=== PATIENT | male | born 1955 | race African-American/Black ===

== ENCOUNTER 2016-11-27 01:36 | Inpatient (IN) | payer MEDICARE ==
--- NOTE | ~2016-11-27 | CR72 ---
[facility] A Service of [facility] RADIOLOGY TEXT RESULTS PATIENT: SRINI LEOS LOCATION: CEDOF : 59 UNIT #: [id number] AGE: [address]: Phoebe Jones MD SEX: M ORDER DR: [id number] [facility] [place] [address] [place], [place] [address] [id number] MR#: [id number] Acc #: [id number] NAME: SRINI LEOS : 1955 SEX: M STUDY DATE/TIME: 11/27/2016 1:25 UNIT: ADRIEL ROOM: STUDY DESCRIPTION: CR Chest Single View Portable Attending Physician: Lucinda Castaneda M.D. Ordering Physician: Lucinda Castaneda M.D. Primary Care Physician: Elijah Mari M.D. MEDICAL IMAGING REPORT This report is preliminary unless electronic signature is present EXAM AP portable chest, 11/27/2016 HISTORY 61-year-old male in the ED with acute stroke syndrome. Shortness of air and weakness are also noted. Symptoms began today prior to arrival. TECHNIQUE AP portable upright chest x-ray. FINDINGS The exam shows no active disease in the chest. Stable [id number] cardiomegaly with normal pulmonary vascularity. Chronically low lung volumes with mild scarring or atelectasis in the lung bases. No definite acute pulmonary infiltrate or pleural effusion. No change since 08/20/2015. IMPRESSION No active disease. Stable cardiomegaly. Dictated by... Isaac Ansari M.D. THIS IS AN ELECTRONICALLY VERIFIED REPORT Isaac Ansari M.D. at 11/27/2016 5:59 AM YASMEEN/sandi TD: 11/27/2016 02:58 JOB #: [id number] [facility] A Service of [facility] RADIOLOGY TEXT RESULTS PATIENT: SRINI LEOS LOCATION: CEDOF : 59 UNIT #: [id number] AGE: [address]: Phoebe Jones MD SEX: M ORDER DR: MEDICAL IMAGING REPORT Page 1 of 1 COPY
--- NOTE | ~2016-11-27 | MR18 ---
[facility] A Service of [facility] & [facility] RADIOLOGY TEXT RESULTS PATIENT: SRINI LEOS LOCATION: A 342-01 : [birth year] UNIT #: [id number] AGE: [address]: Ester Osorio MD SEX: M ORDER DR: [id number] [facility] [address] [place], [place] [address] [id number] I MR#: [id number] Acc #: [id number] NAME: SRINI LEOS : 1955 SEX: M STUDY DATE/TIME: 11/27/2016 11:09 UNIT: A PCU ROOM: [facility] STUDY DESCRIPTION: MR Brain Wo Contrast Attending Physician: Ester Osorio M.D. Ordering Physician: Samson Reynoso M.D. Primary Care Physician: Elijah Mari M.D. MRI CENTER REPORT This report is preliminary unless electronic signature is present. EXAM Brain MRI without HISTORY Right side numbness, previous left hemispheric CVA, stroke 1 year ago. Right side weakness and slurred speech starting 30 minutes prior to arrival 01:03 11/27/2016. COMMENT MRI of the brain was performed without contrast using routine 1.5T imaging technique. There is a prior study from 11/27/[address] There is an MRI from [facility] from 03/06/2016. There is no evidence for a recent ischemic insult on the diffusion series. Partly seen are degenerative changes in the visualized upper cervical spine. There is some old blood product or mineral deposition associated with the old insults to the left posterior frontal, left anterior parietal and left temporal lobe regions. Also old blood product deposition at the anterior aspect of the right thalamus consistent with a remote insult possibly an old hypertensive hemorrhage. These changes are noted on the previous MRI from [facility] also. There is no extraaxial fluid collection. 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 The distal right vertebral artery is dominant and the distal left vertebral artery is hypoplastic. There is atrophy considerably greater than expected for age group and there are chronic lacunar insults in the bilateral cerebellar hemispheres. Patchy signal abnormality in the david is likely due to small vessel disease. Chronic lacunar insults bilateral basal ganglia and thalami and white matter disease likely due to small vessel disease. Small focus of chronic malacia is seen in the right occipital cortex posterolaterally and in the right posterior frontal to anterior parietal cortex posteromedially. These are all consistent with remote insults. Please correlate for risk STS. [facility] A Service of [facility] & [facility] RADIOLOGY TEXT RESULTS PATIENT: SRINI LEOS LOCATION: C3A 342-01 : 59 UNIT #: [id number] AGE: [address]: Ester Osorio MD SEX: M ORDER DR: factors for both thromboembolic disease and small vessel disease given the different apparent chronic ischemic insults present. Partial opacification of the ethmoid air cells. Mastoid air cells are clear. No intracranial mass effect. IMPRESSION No evidence for acute intracranial abnormality. Specifically, no recent ischemic insult is suspected. There is however extensive preexisting ischemic disease with areas of encephalomalacia and old blood product deposition probably due to a combination of prior thromboembolic and small vessel insults. Appearance is overall not significantly changed from outside MRI of 03/06/2016. Atrophy is greater than expected for age group. Vertebrobasilar dolichoectasia noted. STAT * RESULT Dictated by... Emily Ellis M.D. THIS IS AN ELECTRONICALLY VERIFIED REPORT Emily Ellis M.D. at 11/27/2016 6:11 PM SHANON/luzmaria TD: 11/27/2016 13:52 JOB #: [id number] MRI CENTER REPORT Page 1 of 1 COPY
--- NOTE | ~2016-11-27 | DS ---
Unit #: [id number] #: [id number] Patient: SRINI LEOS [id number] [facility]. [place], [place] [address] [id number] I MR#: [id number] NAME: SRINI LEOS ROOM: 342 Age: 61 Sex: M Admission Date: 11/27/2016 : 1955 Discharge Date: 11/28/2016 Attending Physician: Ester Osorio M.D. Primary Care Physician: Elijah Mari M.D. DISCHARGE SUMMARY PRINCIPAL DIAGNOSES 1. Acute on chronic right sided weakness, likely secondary to unmasking. 2. Mild hypotension, medication-induced. 3. Acute kidney injury on chronic kidney disease, stage 3: Baseline creatinine 1.2. 4. Prior history of left cerebrovascular accident with right sided weakness and dysarthria. 5. Permanent atrial fibrillation, rate controlled and maintained on anticoagulation. 6. Hyperlipidemia. 7. Hypertension. HANGER OFF Dr. Reynoso - Neurology. PROCEDURES 1. CT of the head without contrast on November 27, 2016, with left upper temporoparietal infarct, question chronic versus subacute. Old left posterior temporal lobe infarct is unchanged. Old lacunar infarct in left caudate nucleus and right anterior thalamus. Microvascular ischemic changes noted. 2. CT angiogram of the head on November 27, 2016, with no intra or extracranial aneurysm or flow limiting stenosis. Plaque at cervical carotid bifurcations but 0% per NASCET criteria. 3. Chest x-ray on November 27, 2016, with no acute findings. Cardiomegaly noted. 4. MRI of the brain without contrast on November 27, 2016, with no acute intracranial abnormality. There is extensive pre-existing ischemic disease with area of encephalomalacia and old blood product deposition in the left MCA distribution. 5. Two dimensional echocardiogram on November 27, 2016, with ejection fraction of 45% to 50%, moderately dilated left atrium noted. No shunt was noted on bubble study. Mild to moderate mitral regurgitation. Moderate tricuspid regurgitation and right ventricular systolic pressure of 40 mmHg. CLINICAL HISTORY/HOSPITAL COURSE Mr. Leos is a 61-year-old -[place] male with a prior history of extensive left CVA who presents with new onset right sided weakness. Please refer to H and P for further details. CT scan of the head revealed questionable subacute left temporoparietal strokes but I will note patient was in this facility in August 2015 with evolving stroke and received tPA. Patient was subsequently admitted to rule out new stroke. Unit #: [id number] #: [id number] Patient: SRINI LEOS Patient is maintained on Xarelto. This was discontinued and aspirin was added. CTA of the head does not reveal any significant stenosis. MRI of the brain was done and also did not reveal any acute infarct. The CT scans present upon presentation were felt to be secondary to old stroke and were not reflected on prior CT of the head in August 2015 due to the fact stroke was evolving and these findings were that evolving stroke. The patient's right sided weakness has improved and is felt to be secondary to a masking. EEG was also done and was negative. We are going to continue patient on Xarelto. Patient did have a mild bump in creatinine during hospitalization but this resolved with IV hydration. Baseline creatinine appears to be approximately 1.2. Patient's other chronic conditions remain stable. He will be discharged home today. DISCHARGE CONDITION Stable. DISCHARGE STATUS Discharge to home. DISCHARGE MEDICATIONS 1. Xarelto 20 mg daily. 2. Neurontin 100 mg b.i.d. 3. Coreg 25 mg b.i.d. 4. Diltiazem ER 60 mg daily. 5. Lipitor 40 mg, two tablets at bedtime. 6. Lisinopril 40 mg daily. 7. Protonix 20 mg daily. I will note, patient reportedly has a significant history of hypertension. However, some of his medications were held here due to the fact his blood pressure was running low on these medications. Thus, patient's hydralazine, hydrochlorothiazide, and Aldactone have all been held. His potassium has also been held given potassium levels here have been normal off of these medications. He will need a followup blood pressure done. DISCHARGE INSTRUCTIONS The patient was instructed to follow a heart healthy diet. He can increase his activity as tolerated. FOLLOWUP Patient will follow up with his primary care provider (1) in two weeks. Needs re-evaluation of blood pressure at that time and reinitiation of medications if needed. Dictated by... Ester Osorio M.D. RAF/brianna TD: 12/01/2016 08:06 JOB #: [id number] Unit #: [id number] #: [id number] Patient: SRINI LEOS DISCHARGE SUMMARY Page 1 of 1 X Ester Osorio MD X DISCHARGE SUMMARY
--- NOTE | ~2016-11-27 | CO ---
Unit #: [id number] #: [id number] Patient: SRINI LEOS [id number] [facility] [address] [place], [place] [address] [id number] I MR#: [id number] NAME: SRINI LEOS ROOM: 342 Age: 61 Sex: M Admission Date: 11/27/2016 : 1955 Attending Physician: Ester Osorio M.D. Primary Care Physician: Elijah Mari M.D. Requesting Physician: Phoebe Jones M.D. Consultation Date: 11/27/2016 CONSULTATION REPORT REASON FOR CONSULT CVA. PATIENT IDENTIFICATION This is a 61-year-old, right-handed, -Slovak male evaluated in room 342 at [facility]. SOURCE OF INFORMATION Obtained from the patient as well as the medical record. Difficulty obtaining from the patient given his severe expressive difficulties but he is able to make his needs known and nods his head yes/no to questions. HISTORY OF PRESENT ILLNESS This is a pleasant, 61-year-old, right-handed, -Slovak male with a past medical history of left MCA territory ischemic CVA status post Alteplase in August of 2015, history of atrial fibrillation, who is admitted for new neurologic symptoms. The patient has chronic expressive aphasia from his prior stroke in August of 2015. He actually presented to this facility in August of 2015 for acute stroke and received IV Alteplase and then was transferred to [facility] for possible thrombectomy or further intervention. I do not have those records yet at this time. They are pending. He apparently however was discharged with residual expressive aphasia but the patient reports no other significant deficits. The patient presented via EMS to this facility last evening for new complaints of paresthesia of the face, arm and leg on the right side. He was seen emergently as his last known well was about 45 minutes prior to arrival. Dr. Reynoso saw the patient via robot and it was decided the patient was not a good candidate for Alteplase given unclear new measurable deficit of what is new and what is old and also the patient showed questionable subacute findings on the CT. Given that they were unable to determine new versus old and, again, reported new symptoms do not appear to be consistent with a measurable disabling deficit and also the patient is taking Xarelto, Dr. Reynoso felt that the patient was not a candidate for Alteplase. CT angiogram of the head and neck was done that was negative for any occlusion or significant stenosis. No report of any exacerbating or alleviating factors and the patient reports continued paresthesia of the right face, arm and leg but reports it has improved. He denies any other new focal weakness, vision changes, double vision, blurred vision or loss of vision, headache or neck pain, fever or chills, shortness of air, chest pain, nausea or vomiting or abdominal pain or any bruising or bleeding. He has no new cortical symptoms on evaluation. Unit #: [id number] #: [id number] Patient: SRINI LEOS PAST MEDICAL HISTORY 1. Prior left MCA territory ischemic CVA in August of 2015 with residual expressive aphasia. The patient received IV Alteplase at [facility] and was emergently transferred to [facility]. Those records are pending. 2. Atrial fibrillation. He is maintained on Xarelto and reports he has not missed any recent doses. 3. Right shoulder surgery. 4. Abdominal surgery. 5. Hepatitis. 6. Hyperlipidemia. He is on intensive statin therapy. FAMILY HISTORY Positive for stroke. SOCIAL HISTORY The patient lives with his ex-. He is a reformed smoker, denies alcohol use or illicit drug use. ALLERGIES Penicillin. HOME MEDICATIONS As per med rec include: 1. Diltiazem ER. 2. Protonix. 3. Hydrochlorothiazide. 4. Aldactone. 5. Potassium chloride. 6. Lipitor. 7. Carvedilol. 8. Zestril. 9. Neurontin. 10. Hydralazine. 11. Xarelto. REVIEW OF SYSTEMS Fourteen-point review of systems was attempted. Pertinent positives are as discussed above, otherwise negative. PHYSICAL EXAMINATION VITAL SIGNS: Temperature 98.7. Pulse 70. Respirations 18. Blood pressure 112/74. Blood pressure in the ER on arrival was 134/84. Oxygen saturation 99%. Height 5 feet, 11 inches. Weight 242 pounds. BMI 33. NEUROLOGIC EXAMINATION MENTAL STATUS: The patient is awake. He is alert. It is difficult to determine true orientation as the patient has severe expressive difficulties, both aphasia and apraxia, thus making it difficult to get much across other than yes or no answers. He appears to be a good historian and appears to answer yes/no appropriately and can get some things across that clearly make sense. He was able to tell me that he lives with his ex- and he was able to answer some other questions. It just takes significant time and appeared to be very difficult for him. He appears to only be able to answer more simple questions and can certainly nod his head yes and no quite easily. CRANIAL NERVE EXAM: He demonstrates full lim of vision on exam. His eyes are conjugate, without ptosis or nystagmus. Extraocular movements Unit #: [id number] #: [id number] Patient: SRINI ELOS are intact. Sensation of the face and scalp is intact. Strength of muscles of facial expression initially reveals some mild asymmetry on the right compared to the left but he appears to have full use of his muscles of facial expression with facial movement and smiling. Hearing is intact to conversation. Tongue is midline. Unable to visualize uvula and palate. Head turning and shoulder shrug are unremarkable on the left but difficult on the right. He has had prior shoulder surgery. Neck appears to be supple. MOTOR EXAM: He appears to have good strength bilaterally but he does appear to be mildly weaker on the right compared to the left, 5-/5 compared to 5/5 on the left. SENSORY EXAM: Intact. No extinction appreciated. Romberg deferred. GAIT: Deferred at this time. REFLEXES: Unable to elicit. Toes are equivocal. COORDINATION: No ataxia appreciated. DIAGNOSTIC STUDIES IMAGING: CT of the head without contrast, stroke protocol. Impression per radiology report: Likely subacute left upper temporoparietal infarct not present on previous study from 08/20/15. No evidence of associated hemorrhage, surrounding edema or mass effect. Nearby old left posterior temporal lobe infarct has not changed significantly since 08/20/15. Both infarcts are present in the left MCA territory. Old lacunar infarcts near the left caudate nucleus head and right anterior thalamus. Patchy low-attenuation white matter changes, nonspecific but likely related to chronic microvascular disease. Looking at the CT imaging, infarcts all appear to be more chronic as far as the hypodensities. I did review those with Dr. Reynoso in detail including all imaging. CT angiogram of the head and neck shows no intra or extracranial aneurysm or flow-limiting stenosis. No convincing evidence of any intracranial region or zone of hypoperfusion, branch vessel occlusion or other acute abnormality. There is plaque at the cervical carotid bifurcations but no stenosis in either internal carotid by NASCET criteria. No definite acute abnormality. MRI of the brain without contrast on 11/27/16 shows no evidence for acute intracranial abnormality. Specifically, no recent ischemic insult is suspected. There is however extensive preexisting ischemic disease with areas of encephalomalacia and old blood product deposition probably due to a combination of prior thromboembolic and small vessel insults. Appearance is overall not significantly changed from outside MRI of 03/06/2016. Atrophy is greater than expected for age group. Vertebrobasilar dolichoectasia noted. LABORATORY: CRP less than 0.5. Hemoglobin A1C 5.5. TSH 0.89. BMP unremarkable other than a BUN of 26, creatinine 1.5, estimated GFR 58.3, cholesterol is 135, triglycerides 41, LDL 80, HDL 47. White blood cell count 5.2, hemoglobin 12.6, hematocrit 39.2, platelet count 159. Other labs and diagnostic studies are as per chart and have been reviewed. Initial and repeat troponin less than 0.05. IMPRESSION 1. New right facial, arm and leg paresthesia. MRI of the brain negative for new ischemia or ischemic infarct. Consider unmasking versus underlying focal seizure activity. EEG of the brain is pending. Unit #: [id number] #: [id number] Patient: SRINI LEOS 2. History of left middle cerebral artery territory ischemic cerebrovascular accident in August of 2015. The patient received Alteplase in our emergency department and then went emergently to [facility] for further treatment. He has residual aphasia. We are awaiting those records. 3. Atrial fibrillation, on Xarelto. 4. Acute kidney injury this morning. Patient did receive CTA iodine contrast though the night. 5. Hyperlipidemia with LDL of 80. Resume home dose of Lipitor. He was on 80 mg p.o. q.h.s. 6. Nonsmoker. 7. History of hepatitis. PLAN MRI of the brain is unremarkable for any new findings. In looking at the MRI of the brain, it does show appearance that is overall not significantly changed from outside MRI of 03/06/2016 per report. Again, these findings are likely the result of his prior left MCA infarct and he is on anticoagulation for afib. From neurology standpoint we can stop aspirin as this is not a new infarct and not consistent with a transient ischemic attack. EEG is pending. Otherwise stroke risk factors have been assessed and further recommendations pending workup and further clinical course. The case was discussed with Dr. Reynoso who saw the patient as well as he agrees with the above. We will follow along with you. We thank you very much for allowing us to assist in the care of this patient. Dictated by... Joyce Coker A.P.R.N. for Darwin Hubbard/joel TD: 11/27/2016 18:44 JOB #: [id number] CONSULTATION REPORT Page 1 of 1 X Joyce Coker CYBERATHLETE X CONSULTATION REPORT
--- NOTE | ~2016-11-27 | CT18 ---
[facility] A Service of [facility] RADIOLOGY TEXT RESULTS PATIENT: SRINI LEOS LOCATION: [facility] 342-01 : [birth year] UNIT #: [id number] AGE: [address]: Ester Osorio MD SEX: M ORDER DR: [id number] [facility] [address] [place], [place] [address] [id number] I MR#: [id number] Acc #: [id number] NAME: SRINI LEOS : 1955 SEX: M STUDY DATE/TIME: 11/27/2016 1:15 UNIT: C3A PCU ROOM: [facility] STUDY DESCRIPTION: CT Angio Head Stroke Attending Physician: Ester Osorio M.D. Ordering Physician: Lucinda Castaneda M.D. Primary Care Physician: Elijah Mari M.D. MEDICAL IMAGING REPORT This report is preliminary unless electronic signature is present EXAM Head and neck CT angiogram with contrast 11/27/2016 PROCEDURE Axial contrast enhanced head and neck CT angiogram with three-dimensional reformats. This CT examination was performed with one or more of the following radiation dose reduction techniques: automatic exposure control, adjustment of mA and/or kV according to patient size, and iterative reconstruction. COMPARISON Head CT without contrast 11/27/2016. HISTORY Previous history of stroke with new onset right side weakness and difficulty speaking for about 30 minutes. FINDINGS There is a normal arch branching pattern without proximal great vessel stenosis. The right vertebral artery is dominant though both are patent throughout the neck. The basilar artery is patent and the right posterior communicator is clearly identified. The left may be present but that is less certain. The cervical common carotids are widely patent and though there is plaque at the cervical carotid bifurcations there is 0% stenosis in both internal carotids by NASCET criteria. The anterior communicator is patent. There is encephalomalacia in the left posterior frontal and parietal cortex. There is no convincing evidence of acute ischemia, branch vessel occlusion, region or zone of hypoperfusion. The dural venous sinuses are normally patent. There is no intracranial aneurysm or flow-limiting stenosis. IMPRESSION [facility] A Service of [facility] RADIOLOGY TEXT RESULTS PATIENT: SRINI LEOS LOCATION: C3A 342-01 : [birth year] UNIT #: [id number] AGE: [address]: Ester Osorio MD SEX: M ORDER DR: 1. No intra- or extracranial aneurysm or flow-limiting stenosis. No convincing evidence of any intracranial region or zone of hypoperfusion, branch vessel occlusion or other acute abnormality. 2. There is plaque at the cervical carotid bifurcations but no stenosis in either internal carotid by NASCET criteria. No definite acute abnormality. Dictated by... Russell Toussaint M.D. THIS IS AN ELECTRONICALLY VERIFIED REPORT Russell Toussaint M.D. at 11/27/2016 3:51 PM REBECCA/luzmaria TD: 11/27/2016 09:04 JOB #: [id number] MEDICAL IMAGING REPORT Page 1 of 1 COPY
--- NOTE | ~2016-11-27 | EE ---
Unit #: [id number] #: [id number] Patient: SRINI LEOS [id number] [address] [address] [id number] I MR#: [id number] NAME: SRINI LEOS : 1955 SEX: M STUDY DATE/TIME: 11/27/2016 UNIT: C3A PCU ROOM: 342 STUDY DESCRIPTION: EEG Attending Physician: Ester Osorio M.D. Referring Physician: Ester Osorio M.D. Primary Care Physician: Elijah Mari M.D. NEURODIAGNOSTICS REPORT PROCEDURE PERFORMED EEG. REASON FOR STUDY Mental status changes and stroke. EEG DESCRIPTION This is an inpatient, digitally recorded, multi-montage, adult EEG with leads placed according to the International 10-20 system. Hyperventilation and photic stimulation were not done. PROCEDURE REPORT This EEG shows 9-10 Hz posterior background. Some beta artifact was seen. Some muscle artifact was seen but nothing suggesting seizures, status or interictal discharges. Some stage II sleep was seen. No clinical events were seen. Hyperventilation and photic stimulation were not done. IMPRESSION Mostly awake and drowsy EEG with some sleep but otherwise unremarkable EEG. Nothing suggesting seizure or status. Clinical correlation is recommended. An EEG like this does not rule out epilepsy. Dictated by... Darwin Hubbard/eli TD: 11/29/2016 08:34 JOB #: [id number] Unit #: [id number] #: [id number] Patient: SRINI LEOS NEURODIAGNOSTICS REPORT Page 1 of 1 X Samson Reynoso MD NEURODIAGNOSTICS REPORT
--- NOTE | ~2016-11-27 | EKG ---
PATIENT: SRINI LEOS UNIT #: [id number] Ventricular Rate: 81 BPM Atrial Rate: 170 BPM QRS Duration: 102 ms Q-T Interval: 392 ms QTC Calculation(Bezet): 455 ms Calculated R [place]: -22 degrees Calculated T [place]: 67 degrees Diagnosis Line: Atrial fibrillation Diagnosis Line: Abnormal ECG Diagnosis Line: When compared with ECG of 21-AUG-2015 00:39, Diagnosis Line: Vent. rate has decreased BY 75 BPM Diagnosis Line: Confirmed by KOBE KNOX MD ([id number]) on Diagnosis Line: 11/28/2016 10:57:24 PM INTERPRETING MD: DARRELL
--- NOTE | ~2016-11-27 | CT24 ---
[facility] A Service of [facility] RADIOLOGY TEXT RESULTS PATIENT: SRINI LEOS LOCATION: [facility] 342-01 : [birth year] UNIT #: [id number] AGE: [address]: Ester Osorio MD SEX: M ORDER DR: [id number] [facility] [address]. [place], [place] [address] [id number] I MR#: [id number] Acc #: [id number] NAME: SRINI LEOS : 1955 SEX: M STUDY DATE/TIME: 11/27/2016 1:15 UNIT: [address] ROOM: [facility] STUDY DESCRIPTION: CT Angio Neck Stroke Attending Physician: Ester Osorio M.D. Ordering Physician: Lucinda Castaneda M.D. Primary Care Physician: Elijah Mari M.D. MEDICAL IMAGING REPORT This report is preliminary unless electronic signature is present EXAM CT angiogram of the neck FINDINGS Please see CT angiogram of the head for results. Dictated by... Russell Toussaint M.D. THIS IS AN ELECTRONICALLY VERIFIED REPORT Russell Toussaint M.D. at 11/29/2016 10:26 AM REBECCA/luzmaria TD: 11/27/2016 09:05 JOB #: [id number] MEDICAL IMAGING REPORT Page 1 of 1 COPY
--- NOTE | ~2016-11-27 | HP ---
Unit #: [id number] #: [id number] Patient: SRINI LEOS [id number] [address] [place], [place] [address] [id number] I MR#: [id number] NAME: SRINI LEOS ROOM: [address] Age: 61 Sex: M Admission Date: 11/27/2016 : 1955 Attending Physician: Phoebe Jones M.D. Primary Care Physician: Elijah Mari M.D. HISTORY AND PHYSICAL CHIEF COMPLAINT CVA. 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 The patient has a dense expressive aphagia, which is old. From what I can determine he experienced new right-sided numbness about 45 minutes prior to arrival to this ER. He presented to this emergency department at 1 o'clock in the morning. A stat CT scan was performed showing patient's old CVA but also likely subacute left upper temporoparietal infarct. The case was discussed with Dr. Reynoso. As patient currently is taking Xarelto, aspirin was added. A CTA of the head and neck shows no significant stenosis or occlusion. The prior posterior occlusion left MCA appears to be patent today. The patient was admitted to [facility] 08/2015 for a left MCA CVA. Unfortunately we are unable to obtain records at this time and will request records in the morning. PAST MEDICAL HISTORY 1. Hepatitis per old records. 2. Prior left hemispheric CVA 08/2015 with expressive aphasia, right-sided weakness. 3. Atrial fibrillation on Xarelto. 4. Right shoulder surgery. 5. Abdominal surgery. ALLERGIES Penicillin. HOME MEDICATIONS Xarelto, possibly more medicines, will obtain list. FAMILY HISTORY CVA. SOCIAL HISTORY The patient lives with either roommates or family. Stopped smoking. Does not drink alcohol. REVIEW OF SYSTEMS Impossible to obtain due to a dense expressive aphasia. Unit #: [id number] #: [id number] Patient: SRINI LEOS PHYSICAL EXAMINATION GENERAL: Michael 61-year-old male who currently is in no acute distress. VITAL SIGNS: Temperature 98.4, pulse 86, respirations 22, blood pressure 134/84, O2 saturation 99% on room air. HEENT: Eyes - PERRLA, extraocular muscles are intact. Pharynx is benign. Tongue deviates to the right. The patient has a heavy alfaro, I'm unsure, he may have a little right lower facial droop. NECK: Supple without adenopathy or thyromegaly. CHEST: Clear. CARDIAC: Irregular, irregular. S1 and S2 without definite murmur. ABDOMEN: Bowel sounds are present. No hepatosplenomegaly, tenderness or masses. EXTREMITIES: Without clubbing, cyanosis or edema. Pedal pulses are present. NEUROLOGIC: Patient is awake, alert. He is able to respond to commands and nod his head appropriately. He does, however, have a dense expressive aphasia. His right hand grade is weaker than the left. There is a very slight right pronator drift. He has equal strength in his legs. Normal [id number]. He is able to sit up with assistance. DIAGNOSTIC STUDIES ADMISSION LABS: Hematocrit is 41.3, normal white count, platelet count and coags. SMA 12 - BUN 27, glucose 116. GFR is 69. Alcohol level less than 5. Cardiac markers are negative. IMAGING STUDIES: Chest x-ray - stable mild to moderate cardiomegaly. Head CT likely subacute, left upper temporal-parietal infarct. Nearby old left posterior temporal lobe infarct. Old lacunar type infarcts near the left caudate nucleus head and right anterior thalamus. Likely small vessel ischemic disease. CTA of the head and neck show no occlusion or cutoff. CARDIOLOGY STUDIES: EKG shows atrial fibrillation rate 80. ASSESSMENT 1. Right-sided numbness in this patient with a prior left hemispheric CVA. CT scan shows likely subacute temporal-parietal infarct on the left. 2. Chronic atrial fibrillation on Xarelto. PLANS 1. Case was discussed with Dr. Reynoso, aspirin was started along with the patient's continued Xarelto. 2. Check lipid profile, MRI, and obtain prior records from [facility]. 3. Verify home medicines. 4. Obtain echo versus KE, etc, per neurology. Dictated by Phoebe Jones M.D. AML/adm Unit #: [id number] #: [id number] Patient: SRINI LEOS TD: 11/27/2016 05:01 JOB #: [id number] HISTORY AND PHYSICAL Page 1 of 1 X Phoebe Jones MD HISTORY AND PHYSICAL
--- NOTE | ~2016-11-27 | CT72 ---
[facility] A Service of [facility] RADIOLOGY TEXT RESULTS PATIENT: SRINI LEOS LOCATION: [facility] : 59 UNIT #: [id number] AGE: [address]: Phoebe Jones MD SEX: M ORDER DR: [id number] [id number] [facility]. [place], [place] [address] [id number] MR#: [id number] Acc #: [id number] NAME: SRINI LEOS : 1955 SEX: M STUDY DATE/TIME: 11/27/2016 1:03 UNIT: ADRIEL ROOM: STUDY DESCRIPTION: CT Head Wo Contrast Stroke Attending Physician: Lucinda Castaneda M.D. Ordering Physician: Lucinda Castaneda M.D. Primary Care Physician: Elijah Mari M.D. MEDICAL IMAGING REPORT This report is preliminary unless electronic signature is present EXAM CT head, noncontrast, 11/27/2016 HISTORY 61-year-old male in the ED with stroke syndrome symptoms. New onset right-side weakness tonight, difficulty speaking. History of stroke [address] examination of the head without IV contrast. This CT exam was performed with one or more of the following radiation dose reduction techniques: automatic exposure control, adjustment of mA and/or kV according to patient size, and iterative reconstruction. COMPARISON CT head 08/20/2015. FINDINGS There is a likely subacute infarct in the left upper temporoparietal lobe that was not present on the previous study. A nearby chronic left posterior temporal lobe infarct is unchanged since the prior exam. Both are present within the left MCA distribution. No evidence of hemorrhage, significant surrounding white matter edema or mass effect. Old lacunar type infarcts near the left caudate nucleus head and anterior to the right thalamus. Patchy diffuse low-attenuation white matter changes, nonspecific but likely related to chronic microvascular disease. No hydrocephalous. IMPRESSION 1. Likely subacute left upper temporoparietal infarct. This was not [facility] A Service [facility] RADIOLOGY TEXT RESULTS PATIENT: SRINI LEOS LOCATION: [facility] : 59 UNIT #: [id number] AGE: [address]: Phoebe Jones MD SEX: M ORDER DR: present on a previous study of 08/20/2015. No evidence of associated hemorrhage, surrounding edema or mass effect. 2. Nearby old left posterior temporal lobe infarct has not changed significantly since 08/20/2015. Both infarcts are present in the left MCA territory. 3. Old lacunar type infarcts near the left caudate nucleus head and right anterior thalamus. 4. Patchy low-attenuation white matter changes, nonspecific but likely related to chronic microvascular disease. Dictated by... Isaac Ansari M.D. THIS IS AN ELECTRONICALLY VERIFIED REPORT Isaac Ansari M.D. at 11/27/2016 5:58 AM YASMEEN/sandi TD: 11/27/2016 02:33 JOB #: [id number] MEDICAL IMAGING REPORT Page 1 of 1 COPY
[2016-11-27 01:16] LABS: BASOPHIL% 0.7 % (0-2.5); DIFF IND NO; EOSINOPHIL# 0.2 X10e3 (0-0.7); EOSINOPHIL% 3.2 % (0.0-7.0); HEMATOCRIT 41.3 % (38.0-50.0); HEMOGLOBIN 13.2 gm/dL (13.0-16.0); LYMPHOCYTE# 1.9 X10e3 (1.0-3.5); LYMPHOCYTE% 31.2 % (17.0-45.0); MEAN CELL VOLUME 91.1 FL (83-96); MEAN CORPUSCULAR HEMOGLOBIN 29.1 PG (28-34); MEAN CORPUSCULAR HGB CONC 31.9 g/dL (30-36); MEAN PLATELET VOLUME 9.5 FL (6.5-11.5); MONOCYTE# 0.5 X10e3 (0-1.0); NEUTROPHIL# 3.4 X10e3 (1.5-7.1); NEUTROPHIL% 55.9 % (40-75); PLATELET COUNT 164 X10e3 (140-420); RED BLOOD COUNT 4.53 X10e (3.90-5.60); RED CELL DISTRIBUTION WIDTH 13.8 % (11.0-15.5)
[2016-11-27 01:30] LABS: INR 1.1; PARTIAL THROMBOPLASTIN TIME 29.4 SECONDS (23.5-31.3); PROTHROMBIN TIME (PATIENT) 11.9 SECONDS (9.6-11.5)
[2016-11-27 01:39] LABS: ALBUMIN SERUM 3.5 g/dL (3.5-5.0); BILIRUBIN, DIRECT 0.1 mg/dL (0.0-0.2); BILIRUBIN,INDIRECT 0.2 mg/dL (0.0-0.9); BILIRUBIN,TOTAL 0.3 mg/dL (0.2-2.0); BUN/CREATININE RATIO 20.76; CREATININE SERUM 1.3 mg/dL (0.6-1.4); GLOM FILT RATE Estimated 69.2 mL/min (>60); POTASSIUM 4.1 mmol/L (3.5-5.1); PROTEIN TOTAL SERUM 6.7 g/dL (6.0-8.3)
[2016-11-27 01:40] LABS: POC - CREATININE 1.17 mg/dL (0.64-1.27); POC - GFR >60.0 mL/min (>60)
[2016-11-27 01:48] LABS: POC - CKMB <1.0 ng/mL (0.0-7.9); POC - TROPONIN <0.05 ng/mL (<=0.05)
[2016-11-27 03:30] LABS: POC - CKMB <1.0 ng/mL (0.0-7.9); POC - TROPONIN <0.05 ng/mL (<=0.05)
[2016-11-27] MEDS ORDERED: DILTIAZEM ER60 MG PO (07:54)
[2016-11-27] MEDS ORDERED: PROTONIX20 MG PO (07:55)
[2016-11-27] MEDS ORDERED: ALDACTONE25 MG (07:56)
[2016-11-27] MEDS ORDERED: HYDROCHLOROTHIA25 MG (07:56)
[2016-11-27] MEDS ORDERED: POTASSIUM CHLO20 ME1 (07:57)
[2016-11-27] MEDS ORDERED: LIPITOR40 MG PO (07:58)
[2016-11-27] MEDS ORDERED: CARVEDILOL25 M1 PO (07:59)
[2016-11-27] MEDS ORDERED: ZESTRIL40 MG PO (07:59)
[2016-11-27] MEDS ORDERED: NEURONTIN100 MG PO (08:00)
[2016-11-27] MEDS ORDERED: HYDRALAZINE HCL50 MG (08:00)
[2016-11-27] MEDS ORDERED: XARELTO20 MG PO (08:02)
[2016-11-27 08:35] LABS: HEMATOCRIT 39.2 % (38.0-50.0); HEMOGLOBIN 12.6 gm/dL (13.0-16.0); MEAN CELL VOLUME 91.4 FL (83-96); MEAN CORPUSCULAR HEMOGLOBIN 29.4 PG (28-34); MEAN CORPUSCULAR HGB CONC 32.1 g/dL (30-36); RED BLOOD COUNT 4.29 X10e (3.90-5.60); WHITE BLOOD COUNT 5.2 X10e3 (4.0-10.5)
[2016-11-27 09:21] LABS: BUN/CREATININE RATIO 17.33; CREATININE SERUM 1.5 mg/dL (0.6-1.4); GLOM FILT RATE Estimated 58.3 mL/min (>60); POTASSIUM 4.3 mmol/L (3.5-5.1)
[2016-11-28 06:35] LABS: BUN/CREATININE RATIO 19.16; CREATININE SERUM 1.2 mg/dL (0.6-1.4); GLOM FILT RATE Estimated 76.3 mL/min (>60); POTASSIUM 3.8 mmol/L (3.5-5.1)
== END 2016-11-28 17:00 | disposition home or self-care (01) | DRG 57 ==
LOC: CED 01:36 → CEDOF 04:00 → C3A PCU 06:11
PROVIDERS: Emergency Medicine; Internal Medicine
PROC: B32GYZZ Computerized Tomography (CT Scan) of Bilateral Vertebral Arteries using Other Contrast (ICD-10-PCS; principal; 2016-11-27)
DX: I69.351 Hemiplegia and hemiparesis following cerebral infarction affecting right dominant side (principal); N17.9 Acute kidney failure, unspecified; N18.3 Chronic kidney disease, stage 3 (moderate); I12.9 Hypertensive chronic kidney disease with stage 1 through stage 4 chronic kidney disease, or unspecified chronic kidney disease; Z88.0 Allergy status to penicillin; I48.91 Unspecified atrial fibrillation; E78.5 Hyperlipidemia, unspecified; Z82.3 Family history of stroke; Z87.891 Personal history of nicotine dependence; Z79.01 Long term (current) use of anticoagulants; I69.322 Dysarthria following cerebral infarction
CPT/HCPCS: 36415; 70450; 70496; 70498; 70551; 71010; 80048; 80061; 80076; 82553; 82565; 82947; 83036; 84443; 84484; 85025; 85027; 85610; 85730; 86140; 92507; 92523-GN; 92610; 93005; 93306; 94760; 95816; 97163; 97167; 99285; G8978-GP; G8979-GP; G8980-GP; G8987-GO; G8988-GO; G8989-GO; G8996-GN; G8997-GN; Q9967

== ENCOUNTER 2017-02-01 07:21 | Observation (INO) | payer MEDICARE ==
--- NOTE | ~2017-02-01 | EKG ---
PATIENT: SRINI LEOS UNIT #: [id number] Ventricular Rate: 62 BPM Atrial Rate: 111 BPM QRS Duration: 98 ms Q-T Interval: 382 ms QTC Calculation(Bezet): 387 ms Calculated R [place]: -66 degrees Calculated T [place]: 23 degrees Diagnosis Line: Atrial fibrillation Diagnosis Line: Left anterior fascicular block Diagnosis Line: Cannot rule out Anterior infarct , age Diagnosis Line: undetermined Diagnosis Line: Abnormal ECG Diagnosis Line: When compared with ECG of 27-NOV-2016 01:33, Diagnosis Line: Left anterior fascicular block is now Present Diagnosis Line: QT has shortened Diagnosis Line: Confirmed by MUKUL SAAVEDRA MD ([id number]) on Diagnosis Line: 02/02/2017 11:06:53 AM INTERPRETING MD: QUENTIN DUBON
--- NOTE | ~2017-02-01 | CO ---
Unit #: [id number] #: [id number] Patient: SRINI LEOS [id number] [facility]. [place], [place] [address] [id number] I MR#: [id number] NAME: SRINI LEOS ROOM: 02417 Age: 61 Sex: M Admission Date: 02/01/2017 : 1955 Attending Physician: Rhona Cardona M.D. Primary Care Physician: Elijah Mari M.D. Consultation Date: 02/01/2017 CONSULTATION REPORT REASON FOR CONSULT Chest pain. HISTORY OF PRESENT ILLNESS The patient is a 61-year-old -Green[place] male with a history of permanent A-fib on Xarelto, history of a left MCA stroke in August 2015, hypertension, remote tobacco abuse, quit three years ago, history of alcohol abuse, quit ten years ago, history of cocaine abuse, quit ten years ago, as well as a history of PEG placement with removal in April 2016. The patient had an echo in November 2016 which showed an EF of 45% to 50%, mildly dilated left atrium, mild to moderate MR, moderate TR and RVSP of 40 mmHg. The patient presented to the [facility] on 02/01/17 at 7:21 a.m. with complaint of chest pain. The patient is very dysphasic from his previous stroke and can answer with yes/no questions but is very limited verbally and there is no family at bedside. I attempted to reach the family by phone, however, was unsuccessful with reaching anybody. The patient shook head yes that he had chest pain in the middle of the night last night that was shooting in nature as well as a pressure to the left side of the chest. He had some associated shortness of breath and fatigue but denied any diaphoresis, nausea, lightheadedness or syncope. Troponin here in the ER had been less than 0.05 and less than 0.05 two hours apart. BNP is 55. Cardiology was consulted for further evaluation of chest pain. PAST MEDICAL HISTORY 1. Permanent A-fib, on Xarelto. 2. History of CVA with right sided weakness as well as severe dysphasia in August 2015 and possibly in November 2016 although it is difficult to tell from the dictation. 3. Severe dysphasia. 4. Hypertension. 5. Remote tobacco abuse, quit three years ago. 6. History of alcohol abuse, quit ten years ago. 7. History of cocaine abuse - quit ten years ago. 8. History of PEG tube with removal in April 2016. 9. EF of 45% to 50%. Moderately dilated left atrium, mild to moderate MR, moderate TR and RVSP of 40 mmHg per echo November 2016. SURGICAL HISTORY Includes right shoulder surgery with also an incision to the left anterior chest. It is difficult to tell and patient is not able to verbalize what that was from. Unit #: [id number] #: [id number] Patient: SRINI LEOS ALLERGIES Include penicillin. HOME MEDICATIONS 1. Cardizem 60 mg p.o. daily. 2. Protonix 20 mg p.o. daily. 3. Lipitor 80 mg p.o. at bedtime. 4. Coreg 25 mg p.o. twice a day. 5. Zestril 40 mg p.o. daily. 6. Xarelto 20 mg p.o. daily. 7. Neurontin 100 mg p.o. twice a day. REVIEW OF SYSTEMS Ten point review of systems is negative except for what is in the HPI above. PHYSICAL EXAMINATION GENERAL APPEARANCE: This is a 61-year-old -Green[place]ic male who is alert, oriented x3, in no apparent distress. VITAL SIGNS: Blood pressure is 127/100, temp 97.8, pulse 77, respirations 16. HEENT: Pupils equal, round reactive. Oral mucosa is moist. NECK: No JVD, no thyromegaly, no lymphadenopathy, no carotid bruits. HEART: S1, S2. Irregularly irregular. No S3 or S4. No clicks, no rubs, no murmurs. ABDOMEN: Soft. Bowel sounds positive. Nontender, nondistended. EXTREMITIES: No swelling. NEUROLOGICAL: Right sided weakness from previous stroke and dysphasic. DIAGNOSTIC STUDIES LABORATORY: Troponin of less than 0.05 and less than 0.05. BNP of 55. White count 5.9, hemoglobin 13.3, hematocrit 42, platelets 168, sodium 137, potassium 4.5, chloride 107, CO2 24, BUN 30, creatinine 1.7, glucose 94, cholesterol 135, triglycerides 41, LDL 80, HDL 40. CARDIOVASCULAR: EKG - sinus rhythm with controlled ventricular rate. IMPRESSION 1. Left anterior chest pain, musculoskeletal in nature. 2. Old left hemispheric cerebrovascular accident with significant dysphasia. 3. Permanent atrial fibrillation. 4. Left anterior hemiblock. 5. Hypertension. PLAN Analgesic meds for the left chest wall pain. Will repeat one set of enzymes now and have results called. If those enzymes are negative, the patient can go home from cardiac standpoint with no further cardiac workup anticipated at this time. Dictated by... Shadia Giang APRN for Aba Batista M.D. Unit #: [id number] #: [id number] Patient: SRINI LEOS/brianna TD: 02/02/2017 08:03 JOB #: [id number] CONSULTATION REPORT Page 1 of 1 X X CONSULTATION REPORT
--- NOTE | ~2017-02-01 | CR72 ---
[facility] A Service of [facility] RADIOLOGY TEXT RESULTS PATIENT: SRINI LEOS LOCATION: [facility] [address]-48 : 59 UNIT #: [id number] AGE: [address]: PB CARDONA MD SEX: M ORDER DR: [id number] [facility] [address] [place], [place] [address] [id number] I MR#: [id number] Acc #: [id number] NAME: SRINI LEOS : 1955 SEX: M STUDY DATE/TIME: 02/01/2017 7:57 UNIT: [facility] ROOM: 87572 STUDY DESCRIPTION: CR Chest Single View Portable Attending Physician: Pb Cardona M.D. Ordering Physician: Ed Joseluis Patel M.D. Primary Care Physician: Elijah Mari M.D. MEDICAL IMAGING REPORT This report is preliminary unless electronic signature is present EXAM Frontal chest 02/01/2017 INDICATIONS 61-year-old male with chest pain today. Hypertension. History of stroke, hepatitis C, and congestive heart failure. COMPARISON Frontal chest compared with 11/27/2016. FINDINGS Cardiac silhouette is enlarged, but stable. The aorta is tortuous and ectatic. The vascularity is normal, and the lungs are clear. No pneumothorax. IMPRESSION Stable cardiomegaly; otherwise, negative chest. No change. Dictated by... Cirilo Cisenros M.D. THIS IS AN ELECTRONICALLY VERIFIED REPORT Cirilo Cisneros M.D. at 02/01/2017 4:09 PM Lux TD: 02/01/2017 15:20 JOB #: [id number] MEDICAL IMAGING REPORT Page 1 of 1 COPY
[~2017-02-01 07:21] MED LIST: ALDACTONE25 MG; CARVEDILOL25 M1 PO; DILTIAZEM ER60 MG PO; HYDRALAZINE HCL50 MG; HYDROCHLOROTHIA25 MG; LIPITOR40 MG PO; NEURONTIN100 MG PO; POTASSIUM CHLO20 ME1; PROTONIX20 MG PO; XARELTO20 MG PO; ZESTRIL40 MG PO
[2017-02-01 08:04] LABS: BASOPHIL% 0.6 % (0-2.5); EOSINOPHIL# 0.2 X10e3 (0-0.7); EOSINOPHIL% 3.6 % (0.0-7.0); HEMOGLOBIN 13.3 gm/dL (13.0-16.0); LYMPHOCYTE# 1.9 X10e3 (1.0-3.5); LYMPHOCYTE% 32.7 % (17.0-45.0); MEAN CELL VOLUME 90.6 FL (83-96); MEAN CORPUSCULAR HEMOGLOBIN 28.8 PG (28-34); MEAN CORPUSCULAR HGB CONC 31.8 g/dL (30-36); MEAN PLATELET VOLUME 9.9 FL (6.5-11.5); MONOCYTE# 0.6 X10e3 (0-1.0); MONOCYTE% 10.2 % (3.0-12.0); NEUTROPHIL# 3.1 X10e3 (1.5-7.1); NEUTROPHIL% 52.9 % (40-75); PLATELET COUNT 168 X10e3 (140-420); RED BLOOD COUNT 4.63 X10e (3.90-5.60); RED CELL DISTRIBUTION WIDTH 14.3 % (11.0-15.5); WHITE BLOOD COUNT 5.9 X10e3 (4.0-10.5)
[2017-02-01 08:09] LABS: POC - CKMB <1.0 ng/mL (0.0-7.9); POC - TROPONIN <0.05 ng/mL (<=0.05)
[2017-02-01 08:12] LABS: DIFF IND NO
[2017-02-01 08:19] LABS: INR 1.4; PARTIAL THROMBOPLASTIN TIME 34.7 SECONDS (23.5-31.3)
[2017-02-01 08:22] LABS: ALBUMIN SERUM 3.5 g/dL (3.5-5.0); BILIRUBIN, DIRECT 0.1 mg/dL (0.0-0.2); BILIRUBIN,INDIRECT 0.8 mg/dL (0.0-0.9); BILIRUBIN,TOTAL 0.9 mg/dL (0.2-2.0); BUN/CREATININE RATIO 17.64; CALCIUM SERUM 8.8 mg/dL (8.4-10.2); CREATININE SERUM 1.7 mg/dL (0.6-1.4); GLOM FILT RATE Estimated 50.1 mL/min (>60); POTASSIUM 4.5 mmol/L (3.5-5.1); PROTEIN TOTAL SERUM 6.8 g/dL (6.0-8.3)
[2017-02-01 10:01] LABS: POC - CKMB <1.0 ng/mL (0.0-7.9); POC - TROPONIN <0.05 ng/mL (<=0.05)
[2017-02-01 13:52] LABS: %MB 1.1 % (0.0-4.0); MB 1.6 ng/ml
== END 2017-02-01 14:55 | disposition home or self-care (01) ==
LOC: CED 07:21 → CEDOF 09:40 → CED 11:31 → CEDOF 11:31
PROVIDERS: Internal Medicine Cardiovascular Disease; Physician Assistant
DX: R07.89 Other chest pain (principal); I51.7 Cardiomegaly; I48.2 Chronic atrial fibrillation; I69.821 Dysphasia following other cerebrovascular disease; I44.4 Left anterior fascicular block; Z87.891 Personal history of nicotine dependence; Z79.899 Other long term (current) drug therapy; Z87.898 Personal history of other specified conditions; Z88.0 Allergy status to penicillin
CPT/HCPCS: 36415; 71010; 80048; 80076; 82550; 82553; 83880; 84484; 85025; 85610; 85730; 93005; 99285; G0378

== ENCOUNTER 2017-03-23 00:01 | Emergency (ER) | payer OTHER ==
[~2017-03-23] VITALS: Ht 180.3 cm; Wt 103.9 kg
== END 2017-03-23 07:05 | disposition home or self-care (01) ==
LOC: CED 00:01
DX: M79.601 Pain in right arm (principal); I10 Essential (primary) hypertension; Z90.49 Acquired absence of other specified parts of digestive tract; Z88.0 Allergy status to penicillin
CPT/HCPCS: 99283

== ENCOUNTER 2017-04-04 23:28 | Inpatient (IN) | payer OTHER ==
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
--- NOTE | ~2017-04-04 | CO ---
Unit #: [id number] #: [id number] Patient: SRINI LEOS [id number] [facility] [address] [place], [place] [address] [id number] I MR#: [id number] NAME: SRINI LEOS ROOM: 331 Age: 61 Sex: M Admission Date: 04/05/2017 : 1955 Attending Physician: Jerson Stack M.D. Primary Care Physician: Elijah Mari M.D. Consultation Date: 04/06/2017 CONSULTATION REPORT JOB NOTE: CC: PRIMARY CARE DOCTOR, [facility] REASON FOR CONSULTATION Atrial fibrillation with slow ventricular response. HISTORY OF PRESENT ILLNESS This is a 61-year-old male, who back in 2016 had a left CVA with right-sided residual. He has history of permanent atrial fibrillation, has been on Xarelto; chronic kidney disease; hypertension; hyperlipidemia. He quit smoking 2 years ago. He quit alcohol and cocaine abuse 10 years ago. On his last echo, his EF was 45% to 50%. He had moderate MR, moderate TR, history of hepatitis. The patient was brought in by his daughter for increased right-sided weakness and worsening expressive aphasia. There is no indication of the patient have any cough, fever, chills. No recent falls. No nausea, vomiting, or diarrhea. No chest pain, pain in his neck, bilateral jaws, shoulders, arms, or elbow. No dizziness, presyncope, or syncope. No shortness of breath. The patient had CT of the head, which was negative. Dr. Reynoso of Neurology saw the patient. His MRI preliminary report did not show anything acute. The patient was hypotensive on admission. His blood pressure was 83/60. His creatinine went up to 2.1. He does have chronic kidney disease. He was started on gently IV fluids. His lisinopril was held, and he was continued on carvedilol and diltiazem. Also, his hydralazine was being held and hydrochlorothiazide, and Aldactone. The patient was gently diuresed. Overall, his creatinine decrease down to 1.4. His blood pressure is running in low 100s. Today, his rhythm showed atrial fibrillation, but his rate was slowing. He got as low as 45 at one time. This is after he had his dose of Cardizem and carvedilol this morning. He also has had his carvedilol dose decreased. Cardiology has been consulted to assist with evaluation and management. PAST MEDICAL HISTORY 1. History of left CVA with right-sided weakness that was in 08/2015, also has expressive aphasia. 2. Permanent atrial fibrillation, on Xarelto. 3. Chronic kidney disease. 4. Hypertension. 5. Hyperlipidemia. 6. Reported that the patient had a cardiac cath at [facility] about 2 years ago. Details are unavailable. 7. History of hepatitis. 8. Hyperlipidemia. 9. History of a PEG tube and later removed in 2015. Unit #: [id number] #: [id number] Patient: SRINI LEOS 10. On 11/20/2016, 2D echo, LVEF of 45% to 50% with mildly dilated left atrium, uwpp-pj-oennycec mitral regurgitation, and moderate tricuspid regurgitation with elevated RVSP 40 mmHg. 11. History of left anterior hemiblock, on EKG. 12. Reformed alcohol abuse, quit 10 years ago. 13. Reformed smoker, quit 2 years ago. 14. History of cocaine abuse, quit 10 years ago. 15. Probable COPD. PAST SURGICAL HISTORY 1. History of PEG tube and later removed in 04/2016. 2. Right shoulder surgery. 3. Abdominal surgery. HOME MEDICATIONS Diltiazem ER 60 mg p.o. daily, Protonix 20 mg p.o. daily, Lipitor 80 mg p.o. daily, carvedilol 25 mg p.o. b.i.d., lisinopril 40 mg p.o. daily, Neurontin 100 mg p.o. b.i.d., Xarelto 20 mg p.o. daily, Symbicort 2 puffs inhalation b.i.d., baclofen 10 mg t.i.d., hydralazine 50 mg p.o. t.i.d., hydrochlorothiazide 50 mg p.o. daily, Aldactone 25 mg p.o. daily, potassium 20 mEq p.o. t.i.d. ALLERGIES Penicillin. SOCIAL HISTORY The patient lives with his family. He quit smoking 2 years ago. He quit drinking alcohol 10 years ago. He quit cocaine abuse 10 years ago. FAMILY HISTORY Noncontributory. REVIEW OF SYSTEMS See details in HPI. PHYSICAL EXAMINATION GENERAL: Mr. Leos is a 61-year-old male, in no acute respiratory distress. He is awake and alert. He has expressive aphasia, indicate yes/no answers appropriately and he can say some simple words. VITAL SIGNS: Blood pressure currently is 105/82, heart rate 68, respirations 18, temperature 97.1, O2 saturations 99% on room air. NECK: Trachea midline. No thyromegaly or lymphadenopathy. Normal carotid upstrokes. No jugular venous distention. HEART: S1, S2. Regular rate and rhythm. Soft systolic murmur left sternal border. LUNGS: Diminished with few faint rhonchi and faint wheeze in upper airways. ABDOMEN: Obese, soft, nontender. EXTREMITIES: Pedal pulses are palpable. No pedal edema. DIAGNOSTIC STUDIES LABORATORY RESULTS: Glucose is 91, BUN 29, creatinine 1.4, eGFR 63.3, sodium 138, potassium 4.1, chloride 109, CO2 22, calcium is 8.6, total protein 7.2, albumin 3.6, bilirubin total 0.5, AST 27, ALT is 35, and alkaline phosphatase is 58. BNP is 214. Lactic acid is 1.2. Alcohol level less than 5. TSH done in 11/2016 was 0.89. WBCs 5.7, hemoglobin 11.5, hematocrit 34.6, platelets 445. Initial cardiac enzymes; CK-MB is less than 1.0, troponin less than 0.05. Repeat cardiac enzymes; troponin Unit #: [id number] #: [id number] Patient: SRINI LEOS less than 0.03. INR is 1.4. Urinalysis is trace of leukocyte esterase, 1.0 urobilinogen, 5 to 10 rbc's, otherwise unremarkable. IMAGING STUDIES: Chest x-ray shows no active process. CT of the head without contrast shows nothing acute. MRI of the final report is pending, but preliminary report shows nothing acute. CARDIOVASCULAR STUDIES: EKG on admission shows atrial fibrillation, ventricular rate 74 beats per minute, left axis deviation. Inferior infarct, age undetermined; poor R-wave progression. IMPRESSION 1. Increased right-sided weakness, previous stroke with right-sided weakness and expressive aphasia. 2. Hypotension. 3. Acute on chronic kidney disease. 4. Hypovolemia. 5. Permanent atrial fibrillation with now slow ventricular response. 6. Hyperlipidemia. 7. Left ventricular ejection fraction of 45% to 50%, shzv-ra-xrbvvxak mitral regurgitation, and moderate tricuspid regurgitation. 8. Reformed nicotine and alcohol and cocaine abuse. PLAN 1. Cardiology consult to assist with managing the atrial fibrillation with slow ventricular response. There are no significant pauses. The rate does slow down in the 40s as low as one documentation says 39, but the rate increases back immediately. This is why the patient is resting, maybe possibly asleep. There is no documentation of sleep apnea. However, the patient's dose of carvedilol was 25 mg b.i.d. We will decrease it down to 3.125 mg b.i.d. and evaluate the response. Also, we will stop the Cardizem for now. We can always go back up on the beta-agatha for heart rate control and blood pressure control if necessary. 2. The patient's lot of his blood pressure medications are still being held which includes hydralazine, hydrochlorothiazide, Aldactone, and also his potassium because his blood pressure was in the 80s on admission, it was still in the low 100s, so that will also need to be adjusted prior to his discharge. He also was on lisinopril for most likely for his cardiomyopathy and I can be restarted possibly at a later date when his kidneys are stable and his hypotension has resolved. 3. On exam, there are no signs or symptoms of unstable angina. Cardiac enzymes are negative. He says he indicates he had a cardiac cath about 2 years ago. He believes that was at [facility], we tried obtain those records. 4. The patient is on Xarelto for chronic anticoagulation. There is not any evidence of any bleeding. Hemoglobin and hematocrit stable. 5. Further recommendations pending per Dr. Goetz. Thank you very much for allowing assist in this care. Dictated by... Nasra Villa/kira TD: 04/06/2017 20:37 JOB #: [id number] Unit #: [id number] #: [id number] Patient: SRINI LEOS CONSULTATION REPORT Page 1 of 1 X Kristine Victor APRN X CONSULTATION REPORT
--- NOTE | ~2017-04-04 | CR72 ---
[facility] A Service of [facility] & [facility] RADIOLOGY TEXT RESULTS PATIENT: SRINI LEOS LOCATION: [facility] 331-01 : [birth year] UNIT #: [id number] AGE: [address]: Jerson Stack MD SEX: M ORDER DR: [id number] [facility] [address] [place], [place] [address] [id number] I MR#: [id number] Acc #: [id number] NAME: SRINI LEOS : 1955 SEX: M STUDY DATE/TIME: 04/05/2017 0:16 UNIT: A U ROOM: [facility] STUDY DESCRIPTION: CR Chest Single View Portable Attending Physician: Jerson Stack M.D. Ordering Physician: Chandana Vargas M.D. Primary Care Physician: Elijah Mari M.D. MEDICAL IMAGING REPORT This report is preliminary unless electronic signature is present EXAM Portable chest INDICATIONS Right-sided weakness and shortness of air for the past 9 days. PROCEDURE Frontal view chest COMPARISON 02/01/2017 FINDINGS Stable cardiomegaly and mediastinal contours. Low lung volumes but no dense consolidation, visible pleural fluid or pneumothorax. IMPRESSION No active process. No change from 02/01/2017. Dictated by... Hayden Nugent M.D. THIS IS AN ELECTRONICALLY VERIFIED REPORT Hayden Nugent M.D. at 04/06/2017 10:03 PM EED/to TD: 04/05/2017 13:43 JOB #: [id number] MEDICAL IMAGING REPORT Page 1 of 1 COPY
--- NOTE | ~2017-04-04 | DS ---
Unit #: [id number] #: [id number] Patient: SRINI LEOS [id number] [address] [address] [id number] I MR#: [id number] NAME: SRINI LEOS ROOM: 331 Age: 61 Sex: M Admission Date: 04/05/2017 : 1955 Discharge Date: Attending Physician: Jerson Stack M.D. Primary Care Physician: Elijah Mari M.D. DISCHARGE SUMMARY DISCHARGE DIAGNOSES 1. Atrial fibrillation with 2 second sinus pauses with bradycardia. 2. History of cerebrovascular accident, left middle cerebral artery with residual right-sided weakness and aphagia. 3. Hypotension likely from medications. 4. Chronic systolic heart failure, ejection fraction 45% to 50%. 5. Acute kidney injury. 6. Chronic kidney disease, stage 2. 7. Reformed substance abuse. 8. Six beat nonsustained ventricular tachycardia. 9. Chronic anticoagulation on Xarelto for atrial fibrillation. 10. Hyperlipidemia. 11. History of right shoulder surgery. 12. History of hepatitis as per old chart. CONSULTANTS Dr. Reynoso and Dr. Batista. PROCEDURES None. DIAGNOSTIC STUDIES LABORATORY DATA: Sodium 136, potassium 3.8, creatinine 1.5. BNP 240, lactic acid 1.4. Urinalysis shows no signs of infection. Alcohol level less than 5. MRI: MRI of the brain shows no evidence of recent ischemia insult, extensive pre-existing ischemic changes present. IMAGING STUDIES: CT angio head and neck shows mild atherosclerotic disease throughout the vasculature of head and neck. No evidence of significant stenosis. No thrombosis or aneurysm. CAT scan of the head shows no acute changes. Chest x-ray shows no acute disease. ALLERGIES Penicillin. DISCHARGE MEDICATIONS 1. Symbicort 160 mcg two puffs inhalation b.i.d. 2. Xarelto 20 mg p.o. daily. 3. Neurontin 100 mg p.o. b.i.d. Unit #: [id number] #: [id number] Patient: SRINI LEOS 4. Coreg 6.25 mg p.o. every morning and Coreg 3.125 mg p.o. every evening. 5. Lipitor 80 mg p.o. daily. 6. Aspirin 81 daily. 7. Protonix 20 daily. 8. Baclofen 10 mg p.o. 3 times daily. HOSPITALIZATION COURSE 61-year-old admitted because of right side weakness. Atrial fibrillation with bradycardia with two second pauses. Patient is seen by cardiology. They adjusted his medicines. Cardizem has been discontinued and Coreg has been decreased in dose. Currently heart rate is around 79. Continues Xarelto. History of CVA with increased weakness on admission. MRI negative for any acute stroke. The patient is seen by neurology. They recommended to continue with aspirin and Lipitor. At one point, the patient was thought that he would benefit from rehab but currently he is ambulating fine. So physical therapy recommended home with home health, which I am going to arrange. Hypertension on admission, likely from medications. He was on multiple medications on admission. Cardizem hydrochlorothiazide, hydralazine, lisinopril and Aldactone has been discontinued. Currently blood pressure is around 112. Monitor closely and resume lisinopril at later date for his chronic systolic heart failure. Discussion with cardiology okay to discharge patient home. Patient will be discharged home with home health and follow with family physician in one week time. Follow with Dr. Shiva Kincaid, neurology, in four weeks time. Follow with his director of housing in three to four weeks time. Discharge time taken is 31 minutes. Dictated by... Darwin Darling/lex TD: 04/08/2017 12:50 JOB #: [id number] DISCHARGE SUMMARY Page 1 of 1 X Mervat Barrett MD X DISCHARGE SUMMARY
--- NOTE | ~2017-04-04 | HP ---
Unit #: [id number] #: [id number] Patient: SRINI LEOS [id number] [address] [address] [id number] I MR#: [id number] NAME: SRINI LEOS ROOM: 331 Age: 61 Sex: M Admission Date: 04/05/2017 : 1955 Attending Physician: Jerson Stack M.D. Primary Care Physician: Elijah Mari M.D. HISTORY AND PHYSICAL CHIEF COMPLAINT Right side weakness. HISTORY OF PRESENT ILLNESS This is a 61-year-old with history of left cerebrovascular accident with right side weakness and dysarthria, admitted because of more right side weakness. According to him, it started 1 day prior to the admission. His right side weakness is getting worse. He also has slurred speech. He denies having any new tingling numbness. No fall. No fever, no chills, no neck pain. No chest pain, no shortness of breath. No nausea, vomiting or diarrhea. PAST MEDICAL HISTORY 1. History of left cerebrovascular accident with right side weakness. Admitted in November 2016 for same reason with right side weakness. At that time, it was diagnosed with weakness secondary to unmasking. 2. Permanent atrial fibrillation, on Xarelto. 3. Hyperlipidemia. 4. Hypertension. 5. History of right shoulder surgery. 6. Abdominal surgery. 7. History of hepatitis per old records. ALLERGIES Allergies for penicillin. CURRENT HOME MEDICATIONS 1. Diltiazem ER 60 mg p.o. daily. 2. Protonix 20 daily. 3. Lipitor 80 daily. 4. Coreg 25 p.o. b.i.d. 5. Lisinopril 40 daily. 6. Neurontin 100 p.o. b.i.d. 7. Xarelto 20 daily. 8. Symbicort 2 puffs inhalation b.i.d. 9. Baclofen 10 mg 3x daily. 10. Hydralazine 50 3x daily. 11. Hydrochlorothiazide 50 p.o. daily. 12. Aldactone 25 daily. 13. Potassium 20 mEq p.o. 3x daily. FAMILY HISTORY Positive for hypertension. Unit #: [id number] #: [id number] Patient: SRINI LEOS SOCIAL HISTORY Ex-smoker. Currently no smoking, no alcohol, no drugs. REVIEW OF SYSTEMS He nods yes for some of the questions but unable to obtain more history because of expressive aphasia. PHYSICAL EXAMINATION VITAL SIGNS: On admission, temperature 97.3, pulse 86, respirations 18, blood pressure 86/60. Currently, blood pressure is 119/70. GENERAL EXAMINATION: 61-year-old lying on bed, alert, oriented with expressive aphasia. HEENT: Pupils equally reacting to light and accommodation. Dry mucosa present. NECK: Supple. HEART: S1, S2 heard. No murmurs. LUNGS: Clear to auscultation. No crackles, no rhonchi. ABDOMEN: Soft, nontender. Bowel sounds are present. EXTREMITIES: No pedal edema. NEUROLOGICALLY: Right lower extremity is 4/5. Right upper extremity is 3/5, moderate strength. Expressive aphasia present. LAB DATA CAT scan of the head preliminary report - no acute changes. Official report pending. WBC 6.5, hemoglobin 13.6, platelets 162, sodium 136, potassium 4.6, creatinine 2.1. Liver enzymes normal. Lactic acid is 1.0. Troponin is negative. Alcohol level normal. Urinalysis shows trace leukocyte esterase, otherwise no signs of infection. ASSESSMENT AND PLAN 61-year-old admitted because of increased weakness on the right side. 1. Right side weakness, rule out no CVA. He does have history of stroke with right side weakness and expressive aphasia. Patient will have MRI and neurology to see. Continue with aspirin, Lipitor. 2. Hypotension, likely hypovolemic shock versus medications. I am going to hold off most of this medication except Coreg and diltiazem because he has permanent atrial fibrillation. Patient received IV fluids. 3. Acute kidney injury, likely from hypotension and prerenal. Patient received IV fluids. Continue IV fluids. 4. Permanent atrial fibrillation, currently rate controlled. Continue Coreg and diltiazem and Xarelto. 5. Hypertension. Low on admission. Monitor. Patient received IV fluids. 6. Chronic systolic heart failure. Monitor closely while patient is on IV fluids. 7. GI prophylaxis with Protonix. 8. DVT prophylaxis. Patient already on Xarelto. Unit #: [id number] #: [id number] Patient: SRINI LEOS Dictated by Darwin Darling TD: 04/05/2017 14:01 JOB #: [id number] HISTORY AND PHYSICAL Page 1 of 1 X Mervat Barrett MD HISTORY AND PHYSICAL
--- NOTE | ~2017-04-04 | CT24 ---
[facility] A Service of [facility] & [facility] RADIOLOGY TEXT RESULTS PATIENT: SRINI LEOS LOCATION: [facility] 331-01 : 59 UNIT #: [id number] AGE: [address]: Jerson Stack MD SEX: M ORDER DR: [id number] [facility] [address] [place], [place] [address] [id number] I MR#: [id number] Acc #: [id number] NAME: SRINI LEOS : 1955 SEX: M STUDY DATE/TIME: 04/04/2017 23:42 UNIT: [address] ROOM: [facility] STUDY DESCRIPTION: CT Angio Neck Stroke Attending Physician: Jerson Stack M.D. Ordering Physician: Chandana Vargas M.D. Primary Care Physician: Elijah Mari M.D. MEDICAL IMAGING REPORT This report is preliminary unless electronic signature is present EXAM CT angio neck stroke INDICATIONS Focal neurological deficit. Right-sided weakness. Dysarthria. TIA. Prior ischemic stroke. FINDINGS Please see CT ANGIO HEAD STROKE report for combined text results. Dictated by... Dayday Reinoso M.D. THIS IS AN ELECTRONICALLY VERIFIED REPORT Dayday Reinoso M.D. at 04/07/2017 11:09 AM SERA/eamon TD: 04/07/2017 10:15 JOB #: [id number] MEDICAL IMAGING REPORT Page 1 of 1 COPY
--- NOTE | ~2017-04-04 | MR18 ---
[facility] A Service of [facility] & [facility] RADIOLOGY TEXT RESULTS PATIENT: SRINI LEOS LOCATION: [facility] 331-01 : 59 UNIT #: [id number] AGE: [address]: Jerson Stack MD SEX: M ORDER DR: [id number] [facility] [address] [place], [place] [address] [id number] I MR#: [id number] Acc #: [id number] NAME: SRINI LEOS : 1955 SEX: M STUDY DATE/TIME: 04/05/2017 11:16 UNIT: C3[facility] PCU ROOM: 331 STUDY DESCRIPTION: MR Brain Wo Contrast Attending Physician: Jerson Stack M.D. Ordering Physician: Megan Villalba M.D. Primary Care Physician: Elijah Mari M.D. MRI CENTER REPORT This report is preliminary unless electronic signature is present. EXAM MRI of the brain without HISTORY Weakness, right-sided, onset 22:30 04/04/2017. History of stroke in the past. Patient unable to talk. History of liver disease. COMMENT MRI of the brain was performed without contrast using routine 1.5T imaging technique. Preliminary wet reading provided by Dr. Garcia 21:12 04/05/2017. There is no evidence for a recent ischemic insult on the diffusion series. There is extensive, chronic malacic change involving the left MCA territory including the left posterior frontal lobe, left parietal lobe, portions of the more posterosuperior left temporal lobe and more superolateral left occipital lobe. Additionally there are extensive chronic lacunar type insults to the bilateral cerebellar hemispheres largest at the left inferior cerebellar hemisphere. Patchy signal abnormality is seen in the brainstem which is mild but probably due to small vessel disease. There is also small vessel disease in the bilateral white matter where not involved with the more confluent left MCA territory infarct. There are also some areas of cortical signal abnormality in the right cerebral hemisphere including the right posterior frontal and anterior parietal cortex consistent with some remote ischemic insult also. Small focus of cortical malacia also at the right parietal lobe posterolaterally. Findings are not significantly changed from previous. There are bilateral lacunes in the basal ganglia and thalami. The major arterial intracranial flow voids are maintained. The mastoid air cells are clear. The visualized paranasal sinuses are essentially clear. There are partially seen degenerative changes of the cervical spine. There is metal artifact left cheek area. There is no MRI evidence for recent STS. [facility] A Service of [facility] & [facility] RADIOLOGY TEXT RESULTS PATIENT: SRINI LEOS LOCATION: [facility] 331-01 : [birth year] UNIT #: [id number] AGE: [address]: Jerson Stack MD SEX: M ORDER DR: intracranial hemorrhage. There is some gyriform susceptibility consistent with remote blood product or mineral deposition consistent with a left MCA territory infarct. Also probably old blood products at the chronic right thalamic insult anteromedially extending into the internal capsule region. IMPRESSION 1. There is no evidence for a recent ischemic insult on the diffusion series. 2. There is extensive preexisting ischemic disease including large chronic left MCA territory infarct as well as extensive prior small vessel insults. Smaller areas of cortical malacia seen in the right posterior frontal right anterior parietal and right posterolateral parietal lobe also. Findings are relatively unchanged from 11/27/2016. There is no intracranial mass effect or extraaxial fluid collection and there is nothing to suggest a recent hemorrhage on the MRI. STAT * RESULT Dictated by... Emily Ellis M.D. THIS IS AN ELECTRONICALLY VERIFIED REPORT Emily Ellis M.D. at 04/07/2017 2:16 PM SHANON/harry TD: 04/07/2017 09:50 JOB #: [id number] MRI CENTER REPORT Page 1 of 1 COPY
--- NOTE | ~2017-04-04 | CT18 ---
[facility] A Service [facility] RADIOLOGY TEXT RESULTS PATIENT: SRINI LEOS LOCATION: [facility] 331-01 : 59 UNIT #: [id number] AGE: [address]: Jerson Stack MD SEX: M ORDER DR: [id number] [facility] [address] [place], [place] [address] [id number] I MR#: [id number] Acc #: [id number] NAME: SRINI LEOS : 1955 SEX: M STUDY DATE/TIME: 04/04/2017 23:42 UNIT: [address] ROOM: [facility] STUDY DESCRIPTION: CT Angio Head Stroke Attending Physician: Jerson Stack M.D. Ordering Physician: Chandana Vargas M.D. Primary Care Physician: Elijah Mari M.D. MEDICAL IMAGING REPORT This report is preliminary unless electronic signature is present EXAM CTA head and neck INDICATIONS Focal neurological deficit. Right-sided weakness. Dysarthria. TIA. Prior ischemic stroke. TECHNIQUE CT angiogram of the head and neck utilizing 100 mL Isovue-370 IV contrast. Coronal and sagittal 3-D MIP reconstructions were obtained. Volume-rendered and surface-rendered reconstructions were performed. Curved planar reconstructions were reviewed. This CT exam was performed with one or more of the following radiation dose reduction techniques: Automatic exposure control, adjustment of mA and/or kV according to patient size, and iterative reconstruction. COMPARISON CTA head and neck dated 11/27/2016. FINDINGS CTA NECK: Evaluation for significant stenosis is based upon the NASCET criteria. There is a three-vessel aortic arch. The arch vessels are widely patent. There is mild atherosclerotic disease involving the carotid bifurcations, however, there is no evidence of a significant stenosis via the NASCET criteria. The vertebral arteries are patent. The right vertebral artery is dominant. Left vertebral artery is hypoplastic. CTA HEAD: There is mild atherosclerotic disease of the intracranial internal carotid arteries, however, no significant stenosis. The middle cerebral arteries are patent. The left MCA is slightly smaller than right [facility] A Service [facility] RADIOLOGY TEXT RESULTS PATIENT: SRINI LEOS LOCATION: [facility] 331-01 : 59 UNIT #: [id number] AGE: [address]: Jerson Stack MD SEX: M ORDER DR: MCA, likely due to the prior left MCA distribution infarct. The anterior cerebral arteries are widely patent. 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 The left posterior cerebral artery is widely patent. Left posterior communicating artery is not clearly identified. The right vertebral artery is dominant. The left vertebral artery terminates as the PICA branch. There is moderate atherosclerotic disease of the right vertebral artery, however no evidence of a significant stenosis. No thrombosis or aneurysms identified. No dural vein thrombus. No acute osseous abnormalities. IMPRESSION 1. Mild atherosclerotic disease throughout the vasculature of the head and neck, however, no evidence of a significant stenosis, thrombosis, or aneurysm. Initial interpretation provided by Dr. Hayden Nugent at 00:46 on 04/05/2017. Dictated by... Dayday Reinoso M.D. THIS IS AN ELECTRONICALLY VERIFIED REPORT Dayday Reinoso M.D. at 04/07/2017 11:09 AM SERA/eamon TD: 04/07/2017 10:12 JOB #: [id number] MEDICAL IMAGING REPORT Page 1 of 1 COPY
--- NOTE | ~2017-04-04 | EKG ---
PATIENT: SRINI LEOS UNIT #: [id number] Ventricular Rate: 68 BPM Atrial Rate: 416 BPM QRS Duration: 102 ms Q-T Interval: 386 ms QTC Calculation(Bezet): 410 ms Calculated R [place]: -41 degrees Calculated T [place]: 49 degrees Diagnosis Line: Atrial fibrillation Diagnosis Line: Left axis deviation Diagnosis Line: Pulmonary disease pattern Diagnosis Line: Abnormal ECG Diagnosis Line: When compared with ECG of 05-APR-2017 00:06, Diagnosis Line: No significant change was found Diagnosis Line: Confirmed by VINCENZO LAGOS MD ([id number]) on 04/08/2017 Diagnosis Line: 4:52:49 PM INTERPRETING MD: YOLIS DUBON
--- NOTE | ~2017-04-04 | EKG ---
PATIENT: SRINI LEOS UNIT #: [id number] Ventricular Rate: 74 BPM Atrial Rate: 250 BPM QRS Duration: 88 ms Q-T Interval: 370 ms QTC Calculation(Bezet): 410 ms Calculated R [place]: -66 degrees Calculated T [place]: 32 degrees Diagnosis Line: Atrial fibrillation Diagnosis Line: Left axis deviation Diagnosis Line: Pulmonary disease pattern Diagnosis Line: Inferior infarct , age undetermined Diagnosis Line: Abnormal ECG Diagnosis Line: When compared with ECG of 01-FEB-2017 08:04, Diagnosis Line: Current undetermined rhythm precludes rhythm Diagnosis Line: comparison, needs review Diagnosis Line: Confirmed by YAHAIRA ROSA MD ([id number]) on 04/06/2017 Diagnosis Line: 2:00:49 PM INTERPRETING MD: MOE DUBON
--- NOTE | ~2017-04-04 | CT72 ---
[facility] A Service of [facility] RADIOLOGY TEXT RESULTS PATIENT: SRINI LEOS LOCATION: [facility] : 59 UNIT #: [id number] AGE: [address]: Jerson Stack MD SEX: M ORDER DR: [id number] [place], [place] [address] [id number] I MR#: [id number] Acc #: [id number] NAME: SRINI LEOS : 1955 SEX: M STUDY DATE/TIME: 04/04/2017 23:39 UNIT: C3A PCU ROOM: [facility] STUDY DESCRIPTION: CT Head Wo Contrast Stroke Attending Physician: Jerson Stack M.D. Ordering Physician: Chandana Vargas M.D. Primary Care Physician: Elijah Mari M.D. MEDICAL IMAGING REPORT This report is preliminary unless electronic signature is present EXAM CT head without contrast INDICATIONS Right-sided weakness today PROCEDURE Unenhanced CT of the head. This CT exam was performed with one or more of the following radiation dose reduction techniques: automatic exposure control, adjustment of mA and/or kV according to patient size, and iterative reconstruction. COMPARISON 11/27/2016 FINDINGS Interval evolution of previously demonstrated large, mid and posterior left MCA territory infarct. No acute hemorrhage, abnormal mass effect, extraaxial fluid collection or hydrocephalus. Stable left caudate head infarct. No definitive evidence for an acute or early subacute large territory infarct. No midline shift, extraaxial collection or hydrocephalus. No depressed calvarial fracture. Paranasal sinuses and mastoid air cells are clear. IMPRESSION No acute intracranial findings. Dictated by... Hayden Nugent M.D. THIS IS AN ELECTRONICALLY VERIFIED REPORT Hayden Nugent M.D. at 04/06/2017 10:05 PM EED/to [facility] A Service of [facility] RADIOLOGY TEXT RESULTS PATIENT: SRINI LEOS LOCATION: [facility] : 59 UNIT #: [id number] AGE: [address]: Jerson Stack MD SEX: M ORDER DR: TD: 04/05/2017 13:27 JOB #: [id number] MEDICAL IMAGING REPORT Page 1 of 1 COPY
[2017-04-04 23:52] LABS: BASOPHIL% 0.5 % (0-2.5); EOSINOPHIL# 0.2 X10e3 (0-0.7); EOSINOPHIL% 2.5 % (0.0-7.0); HEMATOCRIT 41.5 % (38.0-50.0); HEMOGLOBIN 13.6 gm/dL (13.0-16.0); LYMPHOCYTE# 2.2 X10e3 (1.0-3.5); LYMPHOCYTE% 34.5 % (17.0-45.0); MEAN CELL VOLUME 89.5 FL (83-96); MEAN CORPUSCULAR HEMOGLOBIN 29.4 PG (28-34); MEAN CORPUSCULAR HGB CONC 32.8 g/dL (30-36); MEAN PLATELET VOLUME 9.8 FL (6.5-11.5); MONOCYTE# 0.6 X10e3 (0-1.0); MONOCYTE% 8.9 % (3.0-12.0); NEUTROPHIL# 3.5 X10e3 (1.5-7.1); NEUTROPHIL% 53.6 % (40-75); PLATELET COUNT 162 X10e3 (140-420); RED BLOOD COUNT 4.64 X10e (3.90-5.60); WHITE BLOOD COUNT 6.5 X10e3 (4.0-10.5)
[2017-04-05] LABS: DIFF IND NO
[2017-04-05 00:09] LABS: INR 1.4; PARTIAL THROMBOPLASTIN TIME 30.1 SECONDS (23.5-31.3); PROTHROMBIN TIME (PATIENT) 14.7 SECONDS (10.0-11.7)
[2017-04-05 00:14] LABS: ALBUMIN SERUM 3.6 g/dL (3.5-5.0); BILIRUBIN, DIRECT 0.1 mg/dL (0.0-0.2); BILIRUBIN,INDIRECT 0.4 mg/dL (0.0-0.9); BILIRUBIN,TOTAL 0.5 mg/dL (0.2-2.0); BUN/CREATININE RATIO 21.42; CALCIUM SERUM 9.1 mg/dL (8.4-10.2); CREATININE SERUM 2.1 mg/dL (0.6-1.4); GLOM FILT RATE Estimated 38.8 mL/min (>60); POTASSIUM 4.6 mmol/L (3.5-5.1); PROTEIN TOTAL SERUM 7.2 g/dL (6.0-8.3)
[2017-04-05 01:10] LABS: %MB 1.8 % (0.0-4.0); MB 1.2 ng/ml
[2017-04-05 01:12] LABS: URINE SOURCE CLEAN CATCH
[2017-04-05 01:15] LABS: URINE APPEARANCE CLEAR; URINE BILIRUBIN NEG (NEG); URINE BLOOD TRACE (NEG); URINE COLOR YELLOW; URINE GLUCOSE NEG (NEG); URINE KETONE NEG (NEG); URINE LEUKOCYTE ESTERASE TRACE (NEG); URINE NITRATE NEG (NEG); URINE PROTEIN NEG (NEG); URINE SPECIFIC GRAVITY 1.046 (1.003-1.035)
[2017-04-05 01:17] LABS: URINE BACTERIA AUWI NEG (NEGATIVE); URINE SQUAMOUS EPITHELIAL CELL OCC /[HPF]
[2017-04-05 01:22] LABS: CULTURE INDICATED? NO
[2017-04-05 02:16] LABS: POC - CKMB <1.0 ng/mL (0.0-7.9); POC - TROPONIN <0.05 ng/mL (<=0.05)
[2017-04-05] MEDS ORDERED: SYMBICORT INH (06:09)
[2017-04-05] MEDS ORDERED: LIORESAL10 MG PO (06:09)
[2017-04-05] MEDS ORDERED: ALDACTONE25 MG PO (06:10)
[2017-04-05] MEDS ORDERED: HCTZ PO (06:10)
[2017-04-05] MEDS ORDERED: HYDRALAZINE HCL50 MG PO (06:10)
[2017-04-05] MEDS ORDERED: K-LOR HOSPITAL20 ME1 PO (06:11)
[2017-04-05 07:05] LABS: POC - CREATININE 2.1 mg/dL (0.64-1.27)
[2017-04-05 07:44] LABS: CALCIUM SERUM 8.6 mg/dL (8.4-10.2); CREATININE SERUM 1.9 mg/dL (0.6-1.4); GLOM FILT RATE Estimated 43.8 mL/min (>60); POTASSIUM 4.5 mmol/L (3.5-5.1)
[2017-04-06 05:17] LABS: HEMATOCRIT 34.6 % (38.0-50.0); MEAN CELL VOLUME 88.5 FL (83-96); MEAN CORPUSCULAR HEMOGLOBIN 29.4 PG (28-34); MEAN CORPUSCULAR HGB CONC 33.2 g/dL (30-36); MEAN PLATELET VOLUME 9.4 FL (6.5-11.5); RED BLOOD COUNT 3.92 X10e (3.90-5.60); RED CELL DISTRIBUTION WIDTH 13.8 % (11.0-15.5); WHITE BLOOD COUNT 5.7 X10e3 (4.0-10.5)
[2017-04-06 05:40] LABS: HEMOGLOBIN 11.5 gm/dL (13.0-16.0)
[2017-04-06 06:39] LABS: BUN/CREATININE RATIO 20.71; CALCIUM SERUM 8.6 mg/dL (8.4-10.2); CREATININE SERUM 1.4 mg/dL (0.6-1.4); GLOM FILT RATE Estimated 63.3 mL/min (>60); POTASSIUM 4.1 mmol/L (3.5-5.1)
[2017-04-08 10:38] LABS: CALCIUM SERUM 8.8 mg/dL (8.4-10.2); CREATININE SERUM 1.5 mg/dL (0.6-1.4); GLOM FILT RATE Estimated 58.3 mL/min (>60); MAGNESIUM 1.7 mg/dL (1.6-3.0); POTASSIUM 3.8 mmol/L (3.5-5.1)
[2017-04-08] MEDS ORDERED: CARVEDILOL6.25 MG PO (13:28)
[2017-04-08] MEDS ORDERED: ASPIRIN81 MG PO (13:28)
== END 2017-04-08 21:05 | disposition home health service (06) | DRG 683 ==
LOC: CED 23:28 → CEDOF 04-05 02:00 → C3A PCU 04-05 02:00 → CEDOF 04-05 07:55 → C3A PCU 04-05 07:55
PROVIDERS: Emergency Medicine; Internal Medicine
PROC: B328YZZ Computerized Tomography (CT Scan) of Bilateral Internal Carotid Arteries using Other Contrast (ICD-10-PCS; principal; 2017-04-07)
PROC: B32GYZZ Computerized Tomography (CT Scan) of Bilateral Vertebral Arteries using Other Contrast (ICD-10-PCS; 2017-04-07)
PROC: B32RYZZ Computerized Tomography (CT Scan) of Intracranial Arteries using Other Contrast (ICD-10-PCS; 2017-04-07)
DX: N17.9 Acute kidney failure, unspecified (principal); I47.2 Ventricular tachycardia; I69.951 Hemiplegia and hemiparesis following unspecified cerebrovascular disease affecting right dominant side; I48.2 Chronic atrial fibrillation; I11.0 Hypertensive heart disease with heart failure; I50.22 Chronic systolic (congestive) heart failure; I95.2 Hypotension due to drugs; R47.01 Aphasia; R00.1 Bradycardia, unspecified; I13.0 Hypertensive heart and chronic kidney disease with heart failure and stage 1 through stage 4 chronic kidney disease, or unspecified chronic kidney disease; I08.1 Rheumatic disorders of both mitral and tricuspid valves; K75.9 Inflammatory liver disease, unspecified; E78.5 Hyperlipidemia, unspecified; Z79.01 Long term (current) use of anticoagulants; Z88.0 Allergy status to penicillin; Z87.891 Personal history of nicotine dependence; F10.21 Alcohol dependence, in remission; F14.21 Cocaine dependence, in remission; T46.1X5A Adverse effect of calcium-channel blockers, initial encounter; N18.2 Chronic kidney disease, stage 2 (mild)
CPT/HCPCS: 36415; 51701; 70450; 70496; 70498; 70551; 71010; 80048; 80076; 81003; 82550; 82553; 82565; 82947; 83605; 83735; 83880; 84484; 85025; 85027; 85610; 85730; 90715; 93005; 96360; 96361; 97110; 97116; 97162; 97166; 97530; 97535; 99285; G0480; G8978-GP; G8979-GP; G8987-GO; G8988-GO; Q9967